=== PATIENT | female | born 1935 | race Caucasian/White ===

== ENCOUNTER → 2016-10-16 17:06 | Outpatient (CLI) | payer MEDICARE ==
[2016-07-17 12:37] VITALS: BMI 21.1
[~2016-10-16 17:06] MED LIST: AMOXICILLIN500 M1 PO; ATIVAN0.5 MG PO; BIAXIN 500 MG500 MG PO; FERROUS SULFAT325 MG PO; HYDROCODON-ACE1 EAC7 PO; HYDROCODONE-APA1 TAB PO; LEVAQUIN500 MG PO; LOPRESSOR25 MG PO; LOVASTATIN40 MG PO; SYNTHROID75 MCG PO; ZOFRAN ODT4 MG/UDTAB PO
== END | disposition home or self-care (01) ==
LOC: D.MAMMO 15:30
DX: Z12.31 Encounter for screening mammogram for malignant neoplasm of breast (principal)

== ENCOUNTER → 2017-11-21 10:11 | Outpatient (CLI) | payer MEDICARE ==
[2016-07-17 12:37] VITALS: BMI 21.1
[~2017-11-21 10:11] MED LIST changes: +CELEXA20 MG PO
[2017-11-21 10:50] LABS: BASOPHILS 0.7 % (0-2); EOSINOPHILS 1.7 % (0-7); HEMATOCRIT 41.3 % (36.0-48.0); HEMOGLOBIN 13.9 g/dL (12-16); IMMATURE GRANULOCYTES 0.2 % (0-5); LYMPHOCYTES 36.7 % (15-50); MCH 31.9 pg (26.0-34.0); MCHC 33.7 g/dL (31.0-37.0); MCV 94.7 fL (80.0-100.0); MONOCYTES 11.3 % (2-11); NEUTROPHILS 49.4 % (40-80); PLATELET COUNT 212 10x3/uL (130-400); RBC 4.36 10x6/uL (4.00-5.40); RDW 12.6 % (11.5-14.5); WBC 5.8 10x3/uL (4.8-10.8)
[2017-11-21 11:14] LABS: ALBUMIN 3.8 g/dL (3.4-5.0); ANION GAP 13.1 mmol/L (8-16); BILIRUBIN - DIRECT 0.1 mg/dL (0.00-0.30); BILIRUBIN - INDIRECT 0.4 mg/dL (0.00-1.00); BILIRUBIN - TOTAL 0.5 mg/dL (0.2-1.3); CARBON DIOXIDE 25.5 mmol/L (21.0-32.0); CREATININE - SERUM 1.2 mg/dL (0.6-1.3); POTASSIUM - SERUM 4.6 mmol/L (3.5-5.1); PROTEIN - SERUM 8.4 g/dL (6.4-8.2)
== END | disposition home or self-care (01) ==
LOC: D.CT 10:11 → D.LAB 10:45 → D.CT 11:00
PROVIDERS: Surgery
DX: C18.2 Malignant neoplasm of ascending colon (principal)

== ENCOUNTER 2017-11-27 06:33 | Day surgery (SDC) | payer MEDICARE ==
[~2017-11-27] VITALS: Ht 167.6 cm; Wt 66.4 kg
[~2017-11-27 06:33] MED LIST changes: -CELEXA20 MG PO
[2017-11-27] MEDS ORDERED: CELEXA20 MG PO (07:25)
[2017-11-27 07:34] VITALS: Ht 167.6 cm; Wt 66.4 kg
[2017-11-27 08:29] LABS: HEMATOCRIT 40.8 % (36.0-48.0); HEMOGLOBIN 13.7 g/dL (12-16); MCH 31.7 pg (26.0-34.0); MCHC 33.6 g/dL (31.0-37.0); MCV 94.4 fL (80.0-100.0); MEAN PLATELET VOLUME 10.4 fL (7.4-10.4); RBC 4.32 10x6/uL (4.00-5.40); RDW 12.8 % (11.5-14.5); WBC 5.8 10x3/uL (4.8-10.8)
== END 2017-11-27 13:15 | disposition home or self-care (01) ==
LOC: D.OPS 06:33
PROVIDERS: Anesthesiology
DX: K57.30 Diverticulosis of large intestine without perforation or abscess without bleeding (principal); Z85.038 Personal history of other malignant neoplasm of large intestine; Z90.49 Acquired absence of other specified parts of digestive tract; Z01.812 Encounter for preprocedural laboratory examination

== ENCOUNTER 2018-06-09 09:51 | Emergency (ER) | payer MEDICARE ==
[~2018-06-09] VITALS: Ht 167.6 cm; Wt 70.5 kg
[~2018-06-09 09:51] MED LIST changes: +CELEXA20 MG PO
[2018-06-09 10:00] VITALS: Ht 167.6 cm; Wt 70.5 kg
[2018-06-09 10:51] LABS: BASOPHILS 0.8 % (0-2); EOSINOPHILS 5.3 % (0-7); HEMATOCRIT 39.7 % (36.0-48.0); HEMOGLOBIN 13.6 g/dL (12-16); IMMATURE GRANULOCYTES 0.3 % (0-5); LYMPHOCYTES 32.7 % (15-50); MCH 32.4 pg (26.0-34.0); MCHC 34.3 g/dL (31.0-37.0); MCV 94.5 fL (80.0-100.0); NEUTROPHILS 48.9 % (40-80); RDW 12.7 % (11.5-14.5); WBC 6.1 10x3/uL (4.8-10.8)
[2018-06-09 10:52] LABS: PLATELET COUNT 117 10x3/uL (130-400)
[2018-06-09 10:59] LABS: APPEARANCE HAZY (CLEAR); BACTERIA MANY /hpf (NONE SEEN); BILIRUBIN NEGATIVE (NEGATIVE); COLOR YELLOW (YELLOW); EPITHELIAL CELLS 0-5 /hpf (0-5); GLUCOSE NEGATIVE (NEGATIVE); KETONE NEGATIVE (NEGATIVE); NITRITE NEGATIVE (NEGATIVE); PROTEIN NEGATIVE (NEGATIVE); SPECIFIC GRAVITY 1.015 (1.005-1.020); UROBILINOGEN NORMAL (NORMAL)
[2018-06-09 11:00] LABS: MUCUS <1+ /lpf (NONE SEEN)
[2018-06-09 11:49] LABS: ALBUMIN 3.7 g/dL (3.4-5.0); ALKALINE PHOSPHATASE 68 U/L (46-116); ALT (SGPT) 21 U/L (10-68); BILIRUBIN - TOTAL 0.46 mg/dL (0.2-1.3); CALC OSMOLALITY 283 mosm/kg (275-300); CALCIUM 8.5 mg/dL (8.5-10.1); CARBON DIOXIDE 28.1 mmol/L (21.0-32.0); CHLORIDE - SERUM 108 mmol/L (98-107); CREATININE - SERUM 0.8 mg/dL (0.6-1.3); GLUCOSE 88 mg/dL (74-106); POTASSIUM - SERUM 4.5 mmol/L (3.5-5.1); PROTEIN - SERUM 7.4 g/dL (6.4-8.2); SODIUM 142 mmol/L (136-145); UREA NITROGEN 19 mg/dL (7-18); eGFR NON AFRICAN AMERICAN 73 mL/min (90-120)
[2018-06-09 11:52] LABS: AMYLASE - SERUM 82 U/L (25-115); LIPASE 210 U/L (73-393); TROPONIN-I < 0.017 ng/mL (0.000-0.060)
[2018-06-09] MEDS ORDERED: OMEPRAZOLE20 M1 PO (12:02)
[2018-06-09 12:33] VITALS: BP 191/96
== END 2018-06-09 12:20 | disposition home or self-care (01) ==
LOC: D.ER 09:51
PROVIDERS: Family Medicine
DX: K29.70 Gastritis, unspecified, without bleeding (principal); R82.71 Bacteriuria; Z87.19 Personal history of other diseases of the digestive system; D69.6 Thrombocytopenia, unspecified; I10 Essential (primary) hypertension; Z85.038 Personal history of other malignant neoplasm of large intestine; Z85.048 Personal history of other malignant neoplasm of rectum, rectosigmoid junction, and anus

== ENCOUNTER → 2018-06-26 15:35 | Outpatient (CLI) | payer MEDICARE ==
[2018-06-09 10:00] VITALS: BMI 25.0
[~2018-06-26 15:35] MED LIST changes: +OMEPRAZOLE20 M1 PO
== END | disposition home or self-care (01) ==
LOC: D.CT 15:35
DX: R10.9 Unspecified abdominal pain (principal)

== ENCOUNTER 2019-04-25 17:27 | Observation (INO) | payer MEDICARE ==
[~2019-04-25] VITALS: Ht 167.6 cm; Wt 68.2 kg
[2019-04-25 18:01] LABS: BASOPHILS 0.9 % (0-2); HEMATOCRIT 39.5 % (36.0-48.0); HEMOGLOBIN 13.7 g/dL (12-16); IMMATURE GRANULOCYTES 0.1 % (0-5); LYMPHOCYTES 27.3 % (15-50); MCH 32.2 pg (26.0-34.0); MCHC 34.7 g/dL (31.0-37.0); MCV 92.7 fL (80.0-100.0); MEAN PLATELET VOLUME 10.2 fL (7.4-10.4); MONOCYTES 10.3 % (2-11); NEUTROPHILS 58.4 % (40-80); RBC 4.26 10x6/uL (4.00-5.40); RDW 12.3 % (11.5-14.5); WBC 7.9 10x3/uL (4.8-10.8)
[2019-04-25 18:03] LABS: PLATELET COUNT 206 10x3/uL (130-400)
[2019-04-25 18:11] VITALS: BP 126/72
[2019-04-25 18:16] LABS: ALBUMIN 3.9 g/dL (3.4-5.0); ALKALINE PHOSPHATASE 94 U/L (46-116); ALT (SGPT) 20 U/L (10-68); BILIRUBIN - TOTAL 0.37 mg/dL (0.2-1.3); CALC OSMOLALITY 281 mosm/kg (275-300); CARBON DIOXIDE 26.8 mmol/L (21.0-32.0); CHLORIDE - SERUM 103 mmol/L (98-107); CREATININE - SERUM 1.1 mg/dL (0.6-1.3); GLUCOSE 103 mg/dL (74-106); POTASSIUM - SERUM 4.6 mmol/L (3.5-5.1); PROTEIN - SERUM 7.8 g/dL (6.4-8.2); SODIUM 139 mmol/L (136-145); UREA NITROGEN 24 mg/dL (7-18); eGFR NON AFRICAN AMERICAN 50 mL/min (90-120)
[2019-04-25 18:27] LABS: CKMB 0.3 U/L (0.0-3.6); CREATINE KINASE 53 UL (21-215); MAGNESIUM - SERUM 2.2 mg/dL (1.8-2.4); TROPONIN-I < 0.017 ng/mL (0.000-0.060)
[2019-04-25 18:28] VITALS: BP 120/68
[2019-04-25 18:31] LABS: APTT 27.8 SECONDS (22.8-39.4)
[2019-04-25 18:32] LABS: INR 0.97 (0.85-1.17); PROTIME 12.4 SECONDS (11.6-15.0)
--- NOTE | 2019-04-25 19:30 | NUR ---
PT AND FAMILY UPDATED ON PLAN OF CARE. NO S/S OF ACUTE DISTRESS NOTED. PT DENIES RELIEF FROM MORPHINE.
[2019-04-25 20:40] VITALS: BP 157/68; BMI 24.2
--- NOTE | 2019-04-25 21:20 | NUR ---
2019 ADMIT TO ROOM 2114 FROM ER. ALERT/ORIENTED. ACCOMPANIED BY DAUGHTER. ADMISSION HISTORY AND ASSESSMENT COMPLETED. HOME MEDS REVIEWED. PT RESTING IN RECLINER. STILL HAVING PAIN IN BACK AND NECK SR/67 PER TELEMETRY. PLAN OF CARE INITIATED.
[2019-04-25 21:35] VITALS: BP 157/68
[2019-04-25] MEDS ORDERED: TYLENOL PM1 TAB PO (23:34)
[2019-04-25 23:49] LABS: CKMB 0.5 U/L (0.0-3.6); CREATINE KINASE 46 UL (21-215); TROPONIN-I < 0.017 ng/mL (0.000-0.060)
[2019-04-26] VITALS: BP 122/64
[2019-04-26] MEDS ORDERED: XARELTO20 MG PO (01:54)
[2019-04-26] MEDS ORDERED: Desyrel PO (01:55)
[2019-04-26] MEDS ORDERED: LEVO-T88 MCG PO (01:56)
[2019-04-26 04:00] VITALS: BP 117/66
--- NOTE | 2019-04-26 06:00 | NUR ---
PT RESTING WITH NO DISTRESS. HAS BEEN SR ALL NIGHT. DAUGHTER AT BEDSIDE. CPOC.
--- NOTE | 2019-04-26 07:50 | NUR ---
RESTING IN BED. ORIENTED X4. SINUS RHYTHM 63 ON TELEMETRY. DENIES ANY NEEDS AT THIS TIME. DENIES SOB OR PAIN. CONTINUE PLAN OF CARE AND SAFETY PRECAUTIONS.
[2019-04-26 07:52] LABS: CKMB 0.4 U/L (0.0-3.6); CREATINE KINASE 40 UL (21-215)
[2019-04-26 07:53] LABS: TROPONIN-I < 0.017 ng/mL (0.000-0.060)
[2019-04-26 09:05] VITALS: BP 123/65
[2019-04-26 09:27] LABS: BASOPHILS 0.6 % (0-2); EOSINOPHILS 3.5 % (0-7); HEMATOCRIT 35.8 % (36.0-48.0); HEMOGLOBIN 12.3 g/dL (12-16); IMMATURE GRANULOCYTES 0.3 % (0-5); LYMPHOCYTES 28.1 % (15-50); MCH 32.3 pg (26.0-34.0); MCHC 34.4 g/dL (31.0-37.0); MEAN PLATELET VOLUME 10.6 fL (7.4-10.4); NEUTROPHILS 56.5 % (40-80); PLATELET COUNT 195 10x3/uL (130-400); RBC 3.81 10x6/uL (4.00-5.40); RDW 12.5 % (11.5-14.5); WBC 6.8 10x3/uL (4.8-10.8)
[2019-04-26 09:38] LABS: ALBUMIN 3.3 g/dL (3.4-5.0); BILIRUBIN - TOTAL 0.19 mg/dL (0.2-1.3); CALCIUM 8.5 mg/dL (8.5-10.1); CREATININE - SERUM 1.1 mg/dL (0.6-1.3); PROTEIN - SERUM 6.6 g/dL (6.4-8.2)
[2019-04-26 11:01] VITALS: Ht 167.6 cm; Wt 68.2 kg
[2019-04-26 12:31] VITALS: BP 135/68
[2019-04-26 14:07] LABS: % SATURATION 18 % (15-55); IRON 48 ug/dl (35-150); TOTAL IRON BIND CAPACITY 256 ug/dl (260-445); UNSAT IRON BIND CAPACITY 208 ug/dl (150-375)
[2019-04-26] MEDS ORDERED: BAYER CHEWABLE81 MG PO (16:28)
--- NOTE | 2019-04-26 17:45 | NUR ---
ALERT AND ORIENTED X4. SITTING UP IN BED. FAMILY AT BEDSIDE. DISCHARGE INSTRUCTIONS GIVEN VERBALLY AND WRITTEN. DISCHARGE PAPERS SIGNED ON CHART. DC RT AC IV TIP INTACT. ESCORT TO RIDE VIA AMBULATORY PER PATIENT REQUEST. REMAINS FREE FROM INJURY.
--- NOTE | 2019-04-27 07:49 | MORECARE ---
CASE MANAGEMENT DISCHARGE SUMMARY PATIENT: JAY OLMEDO UNIT: [id number] ADM DATE: 04/25/19 AGE: 83 : 37 SEX: F ROOM/BED: D.2114 AUTHOR: DENA GIRON PHYSICIAN: REFERRING PHYSICIAN: LATASHA GOLDBERG MD DATE OF SERVICE: 04/27/19 Discharge Plan Patient Name: [facility]AY [facility]MEDO [facility] [facility] 1935 Planned Disposition: Home Anticipated Discharge Date: 04/26/19 Discharge Date: 04/26/2019 Expected LOS: 1 Initial Reviewer: [email or web address] Initial Review Date: 04/27/2019 Generated: 04/27/19 8:49 am Patient Name: JAY OLMEDO Page [id number] at 0749 All edits/amendments must be made on the electronic document DICTATION DATE: 04/27/19747 DIRECTOR OF RELIGIOUS ACTIVITIES: LEATHA 04/27/1946 RPT#: [id number] DC DATE:04/26/19 STATUS: DIS IN [facility] [address] [place] [address] END OF REPORT
--- NOTE | 2019-04-29 14:32 | CN ---
PATIENT NAME:JAY GUZMAN MEDICAL RECORD: [id number] : 39 LOCATION:D. D.2114 ADMIT DATE: 04/25/19 ACCOUNT: [id number] CONSULTING PHYSICIAN: MARILEE HUBER MD REFERRING PHYSICIAN: LATASHA GOLDBERG MD DATE OF CONSULTATION: 04/26/2019 CARDIOLOGY CONSULTATION DIAGNOSES: 1. Paroxysmal atrial fibrillation. 2. Hyperlipidemia. 3. Chest pain. HISTORY: Mrs. Guzman peers that she presented to Dr. Gilbert's office was in atrial fibrillation. She did have palpitations. She has had a chest pain that is actually in her back around her scapular area that is constant. It is worsening with changing position. She has had no other chest discomfort. The palpitations have been going on for approximately 3 weeks on and off. She had an echocardiogram at [facility] and this was overall normal. Troponins are normal. She has had no atrial fibrillation since being here. She is on metoprolol. She has had sinus bradycardia in the 60s. Troponins are normal. She has no ST-T changes. PHYSICAL EXAMINATION: CONSTITUTIONAL/GENERAL APPEARANCE: Well nourished, well developed, appears stated age. EYES: Lids and conjunctivae noninjected. No discharge. No pallor. ENT: Lips within normal limit. No cyanosis. No pallor. NECK: Carotid arteries, bilateral normal upstroke. No bruits. No thrills. No jugular venous pressure or distention. CERVICAL LYMPH NODES: Nontender. Nonenlarged. THYROID: Not enlarged. No nodules. CARDIOVASCULAR: Precordial exam, nondisplaced. No heaves or pericardial thrills. Rate and rhythm, regular. Heart sounds, normal S1, normal S2. No S3, no gallop, no rub. Systolic murmur, not heard. Diastolic murmur, not heard. RESPIRATORY: Respiratory effort, unlabored. Normal curvature. No thoracic deformity. No chest wall tenderness. Percussion, resonant. Auscultation, clear. No wheezes, no rales, no rhonchi. ABDOMEN: Soft, nondistended, nontender. No abdominal pain, no vomiting and normal appetite. MUSCULOSKELETAL: No joint tenderness, normal gait, normal tone. SKIN: Warm and dry. OVERALL IMPRESSION: Supposed paroxysmal atrial fibrillation. We have no documentation of that. She was placed on Xarelto. She could not afford it. At this point, she does not need the Xarelto as she has had no atrial fibrillation and here on the metoprolol. I would just leave her on the metoprolol. I think her chest pain/scapular pain is musculoskeletal. We will set her up for a stress test with [facility] as an outpatient. At this time, can be discharged and we will have the stress test within the next week. TRANSINT:[id number] Voice Confirmation ID: [id number] DOCUMENT ID: [id number] CONSULT REPORT [id number] JAY GUZMAN, MARILEE DURAND at 1432 CC: [id number] DICTATION DATE: 04/26/19 1100 SUPERVISOR PRODUCTION: 04/26/19 1130 DIS IN 04/26/19 [facility] [address] [place] [address]
== END 2019-04-26 17:47 | disposition home or self-care (01) ==
LOC: D.ER 17:27 → D.M2 19:35 → OBSVTIME 19:35 → D.M2 04-26 17:47
PROVIDERS: Emergency Medicine; Family Medicine; ADMIT Internal Medicine Nephrology; ATTEND Internal Medicine Nephrology
DX: I20.9 Angina pectoris, unspecified (principal); I48.0 Paroxysmal atrial fibrillation; E03.9 Hypothyroidism, unspecified; I10 Essential (primary) hypertension; E78.5 Hyperlipidemia, unspecified; Z85.048 Personal history of other malignant neoplasm of rectum, rectosigmoid junction, and anus; M19.90 Unspecified osteoarthritis, unspecified site; F41.8 Other specified anxiety disorders; D64.9 Anemia, unspecified; G89.29 Other chronic pain